=== PATIENT | male | born 2000 | race Caucasian/White ===

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

== ENCOUNTER 2022-01-20 16:25 | Emergency (ER) | payer MEDICAID, SELFPAY ==
[2022-01-20 16:44] VITALS: BP 135/83; PULSE 60; RESP 16; TEMP 36.7; O2SAT 98
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
== END 2022-01-20 18:05 | disposition home or self-care (01) ==
PROVIDERS: Emergency Provider Physician Assistant; PCP Pediatrics
DX: S60.221A Contusion of right hand, initial encounter (principal); W22.09XA Striking against other stationary object, initial encounter
CPT/HCPCS: 29125; 99283; 73130; 99282

== ENCOUNTER 2022-03-21 13:29 | Outpatient (REF) | payer MEDICAID, SELFPAY | END 2022-03-21 13:30 | disposition home or self-care (01) | LOC: NCHCN 13:29 | PROVIDERS: PCP Pediatrics; Visit Provider Physician Assistant Medical | DX: J02.9 Acute pharyngitis, unspecified (principal) | CPT/HCPCS: 87081 ==

== ENCOUNTER 2023-05-17 12:11 | Emergency (ER) | payer SELFPAY ==
[2023-05-17 12:15] VITALS: BP 157/65; PULSE 63; RESP 16; TEMP 37.4; O2SAT 100
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
--- NOTE | 2023-05-17 13:51 | DI.VRAD_ITS ---
PROCEDURE INFORMATION: Exam: CT Head Without Contrast Exam date and time: 05/17/2023 12:59 PM Age: 22 years old Clinical indication: Injury or trauma; Fall; Blunt trauma (contusions or hematomas); Other: Not specified. TECHNIQUE: Imaging protocol: Computed tomography of the head without contrast. COMPARISON: No relevant prior studies available. FINDINGS: Brain: Unremarkable. No intracranial hemorrhage. Unremarkable white matter. No mass effect. Cerebral ventricles: No ventriculomegaly. Paranasal sinuses: Mild mucosal thickening of the ethmoid air cells. Mild mucosal thickening of the frontal sinuses. Mastoid air cells: Mucosal thickening of the inferior right mastoid air cells. Nasal cavity: Fractured anterior nasal septum. Bones/joints: Comminuted nasal fracture with soft tissue swelling of the nose. Soft tissues: See Bones/joints finding. IMPRESSION: 1. No acute intracranial abnormality. 2. Comminuted nasal fracture with soft tissue swelling of the nose. 3. Sinus disease as discussed above.. PROCEDURE INFORMATION: Exam: CT Maxillofacial Without Contrast Exam date and time: 05/17/2023 12:59 PM Age: 22 years old Clinical indication: Injury or trauma; Fall; Blunt trauma (contusions or hematomas); Other: Not specified. TECHNIQUE: Imaging protocol: Computed tomography of the face without contrast. COMPARISON: No relevant prior studies available. FINDINGS: Orbital cavities: Orbits are normal. Globes are unremarkable. Bones/joints: Comminuted nasal fracture with soft tissue swelling at the nose. Paranasal sinuses: Bilateral maxillary sinus mucosal thickening. Mucosal thickening of the ethmoid air cells. Mucosal thickening of the posterior right and left frontal sinuses. Mucosal thickening of the floor of the maxillary sinuses. Soft tissues: See Bones/joints finding. Nasal cavity: Fractured anterior nasal septum. Dental: Several missing mandibular molars. IMPRESSION: No acute findings. Comminuted nasal fracture as discussed above. Sinusitis as discussed above. PROCEDURE INFORMATION: Exam: CT Cervical Spine Without Contrast Exam date and time: 05/17/2023 12:59 PM Age: 22 years old Clinical indication: Injury or trauma; Fall; Blunt trauma (contusions or hematomas); Other: Not specified. TECHNIQUE: Imaging protocol: Computed tomography of the cervical spine without contrast. COMPARISON: No relevant prior studies available. FINDINGS: Bones/joints: No acute fracture. Normal alignment. C2-C3: No fracture. No spinal stenosis. No neural foraminal narrowing. C3-C4: No fracture. No spinal stenosis. No neural foraminal narrowing. C4-C5: No fracture. No spinal stenosis. No neural foraminal narrowing. C5-C6: No fracture. No spinal stenosis. No neural foraminal narrowing. C6-C7: No fracture. No spinal stenosis. No neural foraminal narrowing. C7-T1: No fracture. No spinal stenosis. No neural foraminal narrowing. Lungs: Lung apices are normal. Soft tissues: Unremarkable. IMPRESSION: No acute findings. Dictated and Authenticated by: Paola Chavez MD. Ordering:LISA Starr MD
[2023-05-17 13:58] VITALS: BP 157/65; PULSE 63; RESP 16; TEMP 37.4; O2SAT 100
--- NOTE | 2023-05-17 15:03 | NUR.NOTE ---
Referral email to [email or web address]; [facility]NT for comminuted nasal fx within 1 week. Nursing Note:
== END 2023-05-17 14:03 | disposition home or self-care (01) ==
PROVIDERS: Emergency Provider Nurse Practitioner Family; PCP Pediatrics
DX: S02.2XXA Fracture of nasal bones, initial encounter for closed fracture (principal); Y09 Assault by unspecified means
CPT/HCPCS: 99284; 70450; 70486; 72125; 99283